=== PATIENT | female | born 1995 | race American Indian/Alaskan Native ===

== ENCOUNTER 2016-04-14 05:20 | Emergency (ER) | payer OTHER ==
[2016-04-14 08:59] LABS: Bilirubin,Urine Small (Negative); Ketones,Urine Trace mg/dL (Negative)
[2016-04-14 09:00] LABS: Blood,Urine Large (Negative); Leukocyte Esterase,Urine Large (Negative); Nitrite,Urine Negative (Negative); Protein,Urine <30 mg dL mg/dL (Negative); Urobilinogen,Urine 0.2 mg/dL (<2.0)
[2016-04-14 09:10] LABS: Bacteria,Urine 1+ /HPF (Negative); Mucus,Urine 2+ /HPF
[2016-04-14 09:56] VITALS: BP 118/76
--- NOTE | 2016-04-14 10:06 | Emergency Department Report ---
HPI - General Chief Complaint: Urogenital-Female Time Seen by Provider: 04/14/16 09:54 - HPI HPI: 20-year-old female presents today stating she saw blood in her urine this morning. Patient states that she had a bump around her vaginal region yesterday which she busted and pass and blood came out. Patient states she wears urinating at 4 AM this morning when she saw a streak of blood on the toilet paper. Positive for burning upon urination and increased urinary frequency and urgency. Denies history of similar symptoms. Positive for history of urinary tract infections, last in September 2015. Denies vaginal discharge or bleeding. Denies fever, chills, nausea, vomiting, chest pain, shortness of breath, abdominal pain, back pain. ED Past Medical Hx - Past Medical History Previous Medical History?: No - Surgical History Past Surgical History?: No - Social History Smoking Status: Never Smoker Substance Use Type: None, Marijuana - Medications Home Medications: Home Medications Medication Instructions Recorded Confirmed Last Taken Type Phenazopyridine [Pyridium] 200 mg PO TID #6 tab 04/14/16 Unknown Rx Sulfamethoxazole/Trimethoprim 1 each PO BID #6 tablet 04/14/16 Unknown Rx [Bactrim DS TAB] ED Review of Systems ROS: Stated complaint: BLOOD IN URIN Other details as noted in HPI Constitutional: denies: chills, fever, malaise Eyes: denies: eye pain ENT: denies: ear pain, throat pain, congestion Respiratory: denies: cough, shortness of breath, wheezing Cardiovascular: denies: chest pain, palpitations Endocrine: no symptoms reported Gastrointestinal: denies: abdominal pain, nausea, vomiting Genitourinary: urgency, dysuria, frequency, hematuria. denies: discharge Musculoskeletal: denies: back pain Neurological: denies: headache, weakness Physical Exam - Physical Exam Vital Signs: Vital Signs 04/14/16 04/14/16 05:31 09:55 Temperature 97.7 F 98.3 F Pulse Rate 89 82 Respiratory 18 16 Rate Blood Pressure 142/86 Blood Pressure 142/86 118/76 [Left] O2 Sat by Pulse 100 98 Oximetry Physical Exam: GENERAL: The patient is well-developed and well-nourished. Patient is in NAD. HEAD: Normocephalic. Atraumatic. CHEST/LUNGS: Clear to auscultation throughout. HEART/CARDIOVASCULAR: Regular rate and rhythm. No murmurs, rubs or gallops. ABDOMEN: Abdomen is soft, nontender. Bowel sounds normoactive. No guarding or rebound tenderness. Negative for CVA tenderness bilaterally. EXTREMITIES: Peripheral pulses intact. Capillary refill less than 2 seconds. NEURO: Alert and oriented x 3. Normal gait. ED Course Vital Signs 04/14/16 04/14/16 05:31 09:55 Temperature 97.7 F 98.3 F Pulse Rate 89 82 Respiratory 18 16 Rate Blood Pressure 142/86 Blood Pressure 142/86 118/76 [Left] O2 Sat by Pulse 100 98 Oximetry ED Medical Decision Making - Lab Data Vital Signs 04/14/16 04/14/16 05:31 09:55 Temperature 97.7 F 98.3 F Pulse Rate 89 82 Respiratory 18 16 Rate Blood Pressure 142/86 Blood Pressure 142/86 118/76 [Left] O2 Sat by Pulse 100 98 Oximetry - Medical Decision Making 20-year-old female presents today with a dysuria, increased urinary frequency or urgency and some blood on her to the paper. Her urinalysis was performed and reveals large leukocyte esterase and blood and elevated urine white blood cell. Patient is in no acute distress at this time. She will be discharged home and is encouraged to follow up with a primary care provider. She will be sent home on Bactrim and Pyridium and is encouraged to return to the emergency room for any worsening symptoms. Critical care attestation.: If time is entered above; I have spent that time in minutes in the direct care of this critically ill patient, excluding procedure time. ED Disposition Clinical Impression: UTI (urinary tract infection) Qualifiers: Urinary tract infection type: acute cystitis Hematuria presence: with hematuria Qualified Code(s): N30.01 - Acute cystitis with hematuria Disposition: DISCHARGED TO HOME OR SELFCARE Is pt being admited?: No Does the pt Need Aspirin: No Condition: Stable Instructions: Urinary Tract Infection in Women (ED) Additional Instructions: Follow-up with primary care provider. Return to the emergency department if symptoms worsen. Prescriptions: Phenazopyridine [Pyridium] 200 mg PO TID #6 tab Sulfamethoxazole/Trimethoprim [Bactrim DS TAB] 1 each PO BID #6 tablet Referrals: PRIMARY CARE, [Primary Care Provider] - 3-5 Days [facility] [Outside] - 3-5 Days Forms: Work/School Release Form(ED) Time of Disposition: 10:10
== END 2016-04-14 10:17 | disposition home or self-care (01) ==
LOC: ED 05:20
DX: N30.01 Acute cystitis with hematuria (principal); F12.10 Cannabis abuse, uncomplicated
CPT/HCPCS: 81001; 99283